=== PATIENT | female | born 1990 | race African-American/Black ===

== ENCOUNTER → 2016-11-15 | Outpatient (CLI) | payer OTHER ==
--- NOTE | 2016-11-15 08:14 | DIAGNOSTIC IMAGING REPORT ---
ABDOMEN COMPLETE (US) CLINICAL HISTORY: R10.9 generalized abdominal pain COMPARISON STUDY: No previous studies for comparison. FINDINGS: The gallbladder appears sonographically normal. The pancreas appears sonographically normal. There is no ductal dilatation. The common bile duct measures 3 mm. The spleen measures 7.8 cm in length. No splenic masses are visualized. There is no evidence of abdominal aortic dilatation. The IVC appears unremarkable. The right kidney measures 11.1 cm in length. The left kidney measures 10 cm in length. No focal renal masses are visualized. There is no hydronephrosis. There is an equivocal 35 x 21 x 22 mm left lobe hepatic mass. This is relatively isoechoic to surrounding liver. An MRI of the liver is recommended in follow-up for further evaluation. IMPRESSION: Equivocal 35 x 21 x 22 mm left lobe hepatic mass. An MRI is recommended in follow-up for further evaluation. Electronically signed by: Deangelo Lee M.D. 11/15/2016 8:13 AM Dictated Date/Time: 11/15/2016 8:09 AM
== END | disposition home or self-care (01) ==
LOC: C.ULTR 07:09
PROVIDERS: ATTEND Family Medicine
DX: R10.9 Unspecified abdominal pain (principal); K76.89 Other specified diseases of liver

== ENCOUNTER → 2016-11-18 | Outpatient (CLI) | payer OTHER ==
[~2016-11-18] MED LIST: GADOXETATE DISODIUM (NON-WT BASED PROCEDURE) IV PRN
--- NOTE | 2016-11-18 20:23 | DIAGNOSTIC IMAGING REPORT ---
MRI OF THE ABDOMEN COMBO CLINICAL HISTORY: Chronic generalized abdominal pain. Indeterminant lesion in the left hepatic lobe identified by ultrasound.. COMPARISON STUDY: Abdominal ultrasound dated 11/15/2016.. TECHNIQUE: MRI of the abdomen is performed transverse T1 and T2-weighted sequences in the axial and coronal planes. Contrast enhanced sequences were acquired following the IV administration of 10 cc of Eovist. Subtraction imaging was utilized. Additional high-resolution MRCP imaging is performed. FINDINGS: Lower chest: No pleural effusion is identified. The heart is normal in size. There is a 1.9 cm enhancing nodule identified in the right breast. Liver: The liver is normal in size, contour, and signal intensity. No intrahepatic biliary ductal dilatation is seen. The hepatic veins and portal veins are patent. There is a 2.5 x 2.1 cm arterially hypervascular lesion seen in hepatic segment II on axial postcontrast image #23. This lesion shows a central scar, is barely discernible on the T1 and T2-weighted sequences, and shows no delayed washout. This retains Eovist on the delayed images and is consistent with a focal nodular hyperplasia. Gallbladder: No additional hepatic lesions are identified. Contracted and gross normal in appearance. The common bile duct is normal in caliber, measuring up to 4 mm. There is no evidence of choledocholithiasis on MRCP images. Spleen: Normal in size and signal intensity. Pancreas: The pancreas is normal in appearance. The pancreatic duct is normal in caliber. Adrenal glands: Unremarkable. Kidneys: The kidneys are normal in size and without hydronephrosis. The kidneys enhance and excrete symmetrically. Abdominal aorta: Normal in course and caliber. Bowel: Visualized portions of the small bowel and colon show no evidence of obstruction. Peritoneum: There is no abdominal ascites. Lymphadenopathy: None. Skeletal structures: Visualized skeletal structures times are normal marrow signal intensity. IMPRESSION: 1. No acute abnormality is identified. 2. The 2.5 cm left hepatic lobe lesion seen by ultrasound is consistent with a focal nodular hyperplasia. 3. No additional hepatic lesion is identified. 4. There is a 1.9 cm ovoid enhancing nodule identified in the inferior right breast. This is pathologically indeterminant and may represent a fibroadenoma. Follow-up of the breast center for diagnostic ultrasound is recommended. Electronically signed by: Dionsiio Hanks M.D. 11/18/2016 8:21 PM Dictated Date/Time: 11/18/2016 8:12 PM
== END | disposition home or self-care (01) ==
LOC: C.MRI 18:29
PROVIDERS: ATTEND Family Medicine
DX: R16.0 Hepatomegaly, not elsewhere classified (principal); K76.9 Liver disease, unspecified; N63 Unspecified lump in breast